=== PATIENT | female | born 1985 | race American Indian/Alaskan Native ===

== ENCOUNTER 2017-11-06 13:03 | Observation (INO) | payer MEDICAID ==
[2017-11-06 13:43] VITALS: BP 104/64
[2017-11-06] MEDS ORDERED: LACTATED RINGERS 500 ML IV ONE (13:46)
--- NOTE | 2017-11-06 15:30 | Ultrasound Report ---
FINAL REPORT EXAM: US OB BPP WO NON-STRESS HISTORY: decreased movement TECHNIQUE: Biophysical profile PRIORS: None currently available. FINDINGS: Single fetus is identified. Presentation: Cephalic. heart rate: 129 BPM Breathin Gross Body Movements: 2 Tone: 2 Qualitative AFV: 2 IMPRESSION: Biophysical profile score 6/8.
[2017-11-06 15:52] LABS: Bilirubin,Urine NEG (Negative); Blood,Urine NEG (Negative); Color,Urine Yellow (Yellow); Protein,Urine <15 mg/dL mg/dL (Negative); Urobilinogen,Urine < 2.0 mg/dL (<2.0); WBC,Urine < 1.0 /HPF (0.0-6.0)
[2017-11-06] MEDS ORDERED: CELESTONE SOLUSPAN IM SCH (16:00)
[2017-11-06] MEDS ORDERED: MAGNESIUM SULFATE 4GM/100ML 4 GM/100 ML BAG IV ONE (16:28)
[2017-11-06] MEDS ORDERED: MAGNESIUM SULFATE 40GM/1000ML 40 GM/1,000 ML BAG IV ONE (16:29)
--- NOTE | 2017-11-06 17:42 | History and Physical Report ---
History of Present Illness Date of examination: 11/06/17 Date of admission: 11/06/17 13:46 Chief complaint: decreased movement History of present illness: This is a [facility] patient 32 yo AUBREE 01/16/18 at 29 weeks here for decreased movement. she states that she has been having Mandeep Harrison for weeks. She has a hx of Preeclampsia in first with delivery at 33 weeks. Patient has hx of HSV2 +. No outbreaks noted. In this she has been seen by high risk [facility] and dx with polyhydramnios and EIF which has since been resiolved. She deines any vaginal bleeding nor leaking. Past History Past Medical History: no pertinent history ALGEBRAIST History: herpes Family/Genetic History: none Social history: single, smoking (Former). denies: alcohol abuse, prescription drug abuse - Obstetrical History Expected Date of Delivery: 01/16/18 Actual Gestation: 29 Week(s) 6 Day(s) : 2 Para: 1 Hx # Term Pregnancies: 0 Number of Pregnancies: 1 Spontaneous Abortions: 0 Induced : 0 Number of Living Children: 1 Medications and Allergies Allergies Allergy/AdvReac Type Severity Reaction Status Date / Time No Known Allergies Allergy Verified 11/06/17 13:55 Home Medications Medication Instructions Recorded Confirmed Last Taken Type Aspirin [Aspirin BABY CHEW TAB] 81 mg PO DAILY 11/06/17 11/06/17 1 Day Ago History ~11/05/17 Pnv No.95/Ferrous Fum/Folic AC 1 tab PO DAILY 11/06/17 11/06/17 1 Day Ago History [ Vitamins Tablet] ~11/05/17 Active Meds: Active Medications Betamethasone Acet/Betameth SodPhos (Celestone Soluspan) 12 mg IM Q24HR ANISA Last Admin: 11/06/17 16:26 Dose: 12 mg Review of Systems All systems: negative - Vital Signs Vital signs: Vital Signs Pulse BP 90 104/64 11/06/17 13:42 11/06/17 13:42 Temp Pulse Resp BP Pulse Ox 98.2 F 90 18 104/64 100 11/06/17 13:47 11/06/17 13:47 11/06/17 13:47 11/06/17 13:47 11/06/17 13:47 - Physical Exam Breasts: Positive: normal Cardiovascular: Regular rate, Normal S1 Lungs: Positive: Clear to auscultation, Normal air movement Abdomen: Positive: normal appearance, soft, normal bowel sounds. Negative: distention, tenderness, guarding Genitourinary (Female): Positive: normal external genitalia, normal perenium Vulva: both: normal Vagina: Positive: discharge Uterus: Positive: normal size, normal contour Anus/Rectum: Positive: normal perianal skin Extremities: Positive: normal Deep Tendon Reflex Grade: Normal +2 - Obstetrical FHR: category 1, category 2 Cervical Dilatation: 0.5 Cervical Effacement Percentage: 10 station: -4 Uterine Contraction Pattern: Regular Uterine Tone Measurement Phase: Contraction Uterine Contraction Intensity: Mild Results Abnormal lab results 11/06/17 Range/Units 13:30 Urine pH 8.0 H (5.0-7.0) All other labs normal. Ultrasound: report reviewed Assessment and Plan A/P IUP 29 weeks contractions ( stephanie 3-5min) Previous csec cat 1 and cat2 strip [facility] on diversion [place] acceptance of transfer IVF started with Oxyygen Magnesium 4g and 2g Betamethasone given today Close monitoring Transfer to [place] spoke with Dr. Agosto and agrees to accept transfer Labs sent BPP 08/19
[2017-11-06 18:38] LABS: Amphetamine Screen,Urine PRESUMPTIVE NEGATIVE; Benzodiazepines Screen,Urine PRESUMPTIVE NEGATIVE; Cannabinoid Screen,Urine PRESUMPTIVE NEGATIVE; Cocaine Screen,Urine PRESUMPTIVE NEGATIVE; Methadone Screen,Urine PRESUMPTIVE NEGATIVE; Opiate Screen,Urine PRESUMPTIVE NEGATIVE
== END 2017-11-06 18:45 | disposition other institution (70) ==
LOC: TRG 13:03 → LD 13:46
PROVIDERS: ADMIT Obstetrics & Gynecology; ATTEND Obstetrics & Gynecology
DX: O36.8130 Decreased fetal movements, third trimester, not applicable or unspecified (principal); O60.03 Preterm labor without delivery, third trimester; O34.219 Maternal care for unspecified type scar from previous cesarean delivery; Z3A.29 29 weeks gestation of pregnancy; Z87.891 Personal history of nicotine dependence; Z79.899 Other long term (current) drug therapy
CPT/HCPCS: 36415; 76819; 80307; 81001; 82731; 96372; G0378; J0702; J3475; J7120

== ENCOUNTER 2018-08-03 20:32 | Emergency (ER) | payer MEDICAID ==
--- NOTE | 2018-08-03 21:14 | Emergency Department Report ---
Blank Doc - Documentation Documentation: 32 y old female presents to ED s/p fall at [facility] yesterday, states broke f all with left knee ua,upt knee xray ACC eval
[2018-08-03 21:15] VITALS: BP 108/74
[2018-08-03] MEDS ORDERED: ULTRAM PO ONE (22:03)
--- NOTE | 2018-08-03 22:50 | XRay Report ---
PROCEDURE: XR KNEE 3V LT TECHNIQUE: Frontal, lateral, oblique views left knee HISTORY: knee pain COMPARISONS: None FINDINGS: There is no evidence of fracture, subluxation, lytic or blastic change or periosteal reaction. The joint spaces appear to be maintained. The soft tissues are unremarkable. IMPRESSION: 1. No plain film evidence of bony or soft tissue abnormality. If further imaging is required, MRI may be helpful. This document is electronically signed by Danielle Swain MD., Aug 03 2018 10:49:17 PM ET
--- NOTE | 2018-08-03 23:10 | Emergency Department Report ---
ED Lower Extremity HPI - General Chief Complaint: Fall Stated Complaint: FALL/L LEG/KNEE PAIN Time Seen by Provider: 08/03/18 21:07 Source: patient Mode of arrival: Ambulatory Limitations: No Limitations - History of Present Illness Initial Comments: 32-year-old female presents status post fall today she slipped and bilateral left knee there is no swelling or deformity. pt is ambulatory MD Complaint: knee injury Onset/Timin -: hour(s) Injury: Knee: Left Type of Injury: blunt Severity: moderate Severity scale (0 -10): 5 Improves With: nothing Worsens With: weight bearing, movement, palpation Context: fall Associated Symptoms: ambulatory - Related Data Home Medications Medication Instructions Recorded Confirmed Last Taken Aspirin [Aspirin BABY CHEW TAB] 81 mg PO DAILY 11/06/17 11/06/17 1 Day Ago ~11/05/17 Pnv No.95/Ferrous Fum/Folic AC 1 tab PO DAILY 11/06/17 11/06/17 1 Day Ago [ Vitamins Tablet] ~11/05/17 Previous Rx's Medication Instructions Recorded Last Taken Type Cyclobenzaprine [Flexeril] 10 mg PO TID PRN #30 tablet 08/03/18 Unknown Rx Naproxen [Naprosyn] 500 mg PO BID PRN #30 tablet 08/03/18 Unknown Rx Allergies Allergy/AdvReac Type Severity Reaction Status Date / Time No Known Allergies Allergy Verified 11/06/17 13:55 ED Review of Systems ROS: Stated complaint: FALL/L LEG/KNEE PAIN Other details as noted in HPI Constitutional: denies: chills, fever Eyes: denies: eye pain, eye discharge, vision change ENT: denies: ear pain, throat pain Respiratory: denies: cough, shortness of breath, wheezing Cardiovascular: denies: chest pain, palpitations Endocrine: no symptoms reported Gastrointestinal: denies: abdominal pain, nausea, diarrhea Genitourinary: denies: urgency, dysuria, discharge Musculoskeletal: other (knee pain ) Skin: denies: rash, lesions Neurological: denies: headache, weakness, paresthesias Psychiatric: denies: anxiety, depression Hematological/Lymphatic: as per HPI ED Past Medical Hx - Past Medical History Hx Hypertension: No Hx Diabetes: No Hx Deep Vein Thrombosis: No Hx Renal Disease: No Hx Sickle Cell Disease: No Hx Seizures: No Hx Asthma: No Hx HIV: No - Surgical History Past Surgical History?: Yes Additional Surgical History: c-sect x2 - Social History Smoking Status: Current Every Day Smoker Substance Use Type: Alcohol - Medications Home Medications: Home Medications Medication Instructions Recorded Confirmed Last Taken Type Aspirin [Aspirin BABY CHEW TAB] 81 mg PO DAILY 11/06/17 11/06/17 1 Day Ago History ~11/05/17 Pnv No.95/Ferrous Fum/Folic AC 1 tab PO DAILY 11/06/17 11/06/17 1 Day Ago History [ Vitamins Tablet] ~11/05/17 Cyclobenzaprine [Flexeril] 10 mg PO TID PRN #30 tablet 08/03/18 Unknown Rx Naproxen [Naprosyn] 500 mg PO BID PRN #30 tablet 08/03/18 Unknown Rx ED Physical Exam - General Limitations: No Limitations General appearance: alert, in no apparent distress - Head Head exam: Present: atraumatic, normocephalic - Eye Eye exam: Present: normal appearance, PERRL, EOMI Pupils: Present: normal accommodation - ENT ENT exam: Present: mucous membranes moist - Neck Neck exam: Present: normal inspection - Respiratory Respiratory exam: Present: normal lung sounds bilaterally. Absent: respiratory distress - Cardiovascular Cardiovascular Exam: Present: regular rate, normal rhythm, normal heart sounds. Absent: systolic murmur, diastolic murmur, rubs, gallop - GI/Abdominal GI/Abdominal exam: Present: soft, normal bowel sounds. Absent: bruit, hernia - Rectal Rectal exam: Present: deferred - Extremities Exam Extremities exam: Present: full ROM, tenderness (left anterior knee ), normal capillary refill. Absent: pedal edema, joint swelling, calf tenderness - Expanded Lower Extremity Exam Left Knee exam: Present: full ROM, tenderness, pain w/ pronation/supination, full knee extension. Absent: swelling, abrasion, laceration, ecchymosis, deformity, crepidus, dislocation, erythema, effusion, posterior draw sign, pain/laxity with valgus, pain/laxity with varus Lower Leg exam: Present: normal inspection, full ROM. Absent: tenderness Ankle exam: Present: normal inspection, full ROM. Absent: tenderness Foot/Toe exam: Present: normal inspection, full ROM. Absent: tenderness Neuro vascular tendon exam: Absent: pulse deficit, motor deficit, sensory deficit, tendon deficit Gait: Positive: observed and normal - Back Exam Back exam: Present: normal inspection, full ROM. Absent: tenderness, muscle spasm, rash noted - Neurological Exam Neurological exam: Present: alert, oriented X3, CN II-XII intact, normal gait, reflexes normal. Absent: motor sensory deficit - Psychiatric Psychiatric exam: Present: normal affect, normal mood - Skin Skin exam: Present: warm, dry, intact, normal color. Absent: rash ED Course Vital Signs 08/03/18 20:39 Temperature 98.2 F Pulse Rate 81 Respiratory 16 Rate Blood Pressure 108/74 O2 Sat by Pulse 99 Oximetry ED Lower Extremity MDM - Radiology Data Radiology results: report reviewed, image reviewed Ordering Physician: FRAN ROQUE Date of Service: 08/03/18 Procedure(s): XR knee 3V LT Accession Number(s): [id number] cc: FRAN ROQUE Fluoro Time In Minutes: PROCEDURE: XR KNEE 3V LT TECHNIQUE: Frontal, lateral, oblique views left knee HISTORY: knee pain COMPARISONS: None FINDINGS: There is no evidence of fracture, subluxation, lytic or blastic change or periosteal reaction. The joint spaces appear to be maintained. The soft tissues are unremarkable. IMPRESSION: 1. No plain film evidence of bony or soft tissue abnormality. If further imaging is required, MRI may be helpful. This document is electronically signed by Danielle Swain MD., Aug 03 2018 10:49:17 PM ET Transcribed By: ED Dictated By: DANIELLE SWAIN MD Electronically Authenticated By: DANIELLE SWAIN MD Signed Date/Time: 08/03/182249 DD/ 56 TD/TT: 08/03/182156 - Medical Decision Making This is a knee strain plan NSAIDs muscle relaxants Rice therapy following obesity. 2-3 days and return immediately should symptoms worsen patient verbalized agreement and understanding of discharge plan patient DC'd home in stable condition at this time Critical care attestation.: If time is entered above; I have spent that time in minutes in the direct care of this critically ill patient, excluding procedure time. ED Disposition Clinical Impression: Knee strain Qualifiers: Encounter type: initial encounter Laterality: left Qualified Code(s): S86.912A - Strain of unspecified muscle(s) and tendon(s) at lower leg level, left leg, initial encounter Disposition: DC-01 TO HOME OR SELFCARE Is pt being admited?: No Does the pt Need Aspirin: No Condition: Stable Instructions: Knee Pain (ED), Knee Sprain (ED), Knee Exercises (GEN) Prescriptions: Cyclobenzaprine [Flexeril] 10 mg PO TID PRN #30 tablet PRN Reason: Muscle Spasm Naproxen [Naprosyn] 500 mg PO BID PRN #30 tablet PRN Reason: pain Referrals: THEO SHI MD [Staff Physician] - 3-5 Days Forms: Work/School Release Form(ED)
== END 2018-08-03 23:15 | disposition home or self-care (01) ==
LOC: ED 20:32
DX: S86.912A Strain of unspecified muscle(s) and tendon(s) at lower leg level, left leg, initial encounter (principal); F17.200 Nicotine dependence, unspecified, uncomplicated; W01.0XXA Fall on same level from slipping, tripping and stumbling without subsequent striking against object, initial encounter; Y93.89 Activity, other specified; Y92.89 Other specified places as the place of occurrence of the external cause; Y99.8 Other external cause status

== ENCOUNTER 2019-04-30 12:39 | Outpatient (CLI) | payer MEDICAID ==
[2019-04-30 13:23] VITALS: BP 100/64
== END 2019-04-30 14:00 | disposition home or self-care (01) ==
LOC: TRG 12:39
PROVIDERS: ATTEND Obstetrics & Gynecology
DX: O26.893 Other specified pregnancy related conditions, third trimester (principal); R06.02 Shortness of breath; Z3A.38 38 weeks gestation of pregnancy
CPT/HCPCS: 59025

== ENCOUNTER 2019-04-30 14:01 | Emergency (ER) | payer MEDICAID ==
--- NOTE | 2019-04-30 14:18 | Event Note ---
ED Screening Note ED Screening Note: chest tightness, shortness of breath, This initial assessment/diagnostic orders/clinical plan/treatment(s) is/are subject to change based on patients health status, clinical progression and re- assessment by fellow clinical providers in the ED. Further treatment and workup at subsequent clinical providers discretion. Patient/guardian urged not to elope from the ED as their condition may be serious if not clinically assessed and managed. Initial orders include: cbc bmp bnp EKG
[2019-04-30 14:53] LABS: Basophils # (Auto) 0.1 K/mm3 (0.0-0.1); Basophils % (Auto) 1.2 % (0.0-1.8); Eosinophils # (Auto) 0.1 K/mm3 (0.0-0.4); Eosinophils % (Auto) 2.3 % (0.0-4.3); Hematocrit 35.5 % (30.3-42.9); Hemoglobin 11.6 gm/dl (10.1-14.3); Lymphocytes # (Auto) 1.4 K/mm3 (1.2-5.4); Lymphocytes % (Auto) 23.8 % (13.4-35.0); Mean Corpuscular HGB Conc 33 % (30-34); Mean Corpuscular Volume 85 fl (79-97); Monocytes # (Auto) 0.6 K/mm3 (0.0-0.8); Monocytes % (Auto) 9.9 % (0.0-7.3); Red Blood Count 4.15 M/mm3 (3.65-5.03)
[2019-04-30 15:10] LABS: Platelet Count 278 K/mm3 (140-440)
[2019-04-30 15:16] LABS: BUN/Creatinine Ratio 9; Blood Urea Nitrogen 6 mg/dL (7-17); Calcium 8.9 mg/dL (8.4-10.2)
[2019-04-30] MEDS ORDERED: SODIUM CHLORIDE 0.9% 1000 ML 1,000 ML IV ONE (15:45)
[2019-04-30] MEDS ORDERED: ACETAMINOPHEN 325 MG TAB PO ONE (15:45)
--- NOTE | 2019-04-30 16:08 | Emergency Department Report ---
ED General Adult HPI - General Chief complaint: Chest Pain Stated complaint: CP Time Seen by Provider: 04/30/19 15:28 Source: patient Mode of arrival: Wheelchair Limitations: No Limitations - History of Present Illness Initial comments: Patient is a 33-year-old female presents emergency room with complaints of chest pain that began 3 days ago. She describes it as a heaviness and a tightness. She states that she also has palpitations which feel like a fluttering and difficulty in breathing. Patient is currently 39 weeks . She denies any leg swelling, pleuritic chest pain, fever, cough, hemoptysis, recent illness, recent travel, recent surgery. She states that she got called her [facility] APPRAIS[facility] at [facility] and was advised to be evaluated in the emergency department. /P:1/A:1. 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 Severity scale (0 -10): 0 - Related Data Home Medications Medication Instructions Recorded Confirmed Last Taken Aspirin [Aspirin BABY CHEW TAB] 81 mg PO DAILY 11/06/17 11/06/17 1 Day Ago ~11/05/17 Pnv No.95/Ferrous Fum/Folic AC 1 tab PO DAILY 11/06/17 11/06/17 1 Day Ago [ Vitamins Tablet] ~11/05/17 Previous Rx's Medication Instructions Recorded Last Taken Type Cyclobenzaprine [Flexeril] 10 mg PO TID PRN #30 tablet 08/03/18 Unknown Rx Naproxen [Naprosyn] 500 mg PO BID PRN #30 tablet 08/03/18 Unknown Rx Allergies Allergy/AdvReac Type Severity Reaction Status Date / Time No Known Allergies Allergy Verified 11/06/17 13:55 ED Review of Systems ROS: Stated complaint: CP Other details as noted in HPI Comment: All other systems reviewed and negative ED Past Medical Hx - Past Medical History Previous Medical History?: No Hx Hypertension: No Hx Diabetes: No Hx Deep Vein Thrombosis: No Hx Renal Disease: No Hx Sickle Cell Disease: No Hx Seizures: No Hx Asthma: No Hx HIV: No - Surgical History Past Surgical History?: Yes Additional Surgical History: c-sect x2 - Social History Smoking Status: Never Smoker Substance Use Type: None - Medications Home Medications: Home Medications Medication Instructions Recorded Confirmed Last Taken Type Aspirin [Aspirin BABY CHEW TAB] 81 mg PO DAILY 11/06/17 11/06/17 1 Day Ago History ~11/05/17 Pnv No.95/Ferrous Fum/Folic AC 1 tab PO DAILY 11/06/17 11/06/17 1 Day Ago History [ Vitamins Tablet] ~11/05/17 Cyclobenzaprine [Flexeril] 10 mg PO TID PRN #30 tablet 08/03/18 Unknown Rx Naproxen [Naprosyn] 500 mg PO BID PRN #30 tablet 08/03/18 Unknown Rx ED Physical Exam - General Limitations: No Limitations General appearance: alert, in no apparent distress - Head Head exam: Present: atraumatic, normocephalic - Eye Eye exam: Present: normal appearance - ENT ENT exam: Present: mucous membranes moist - Respiratory Respiratory exam: Present: normal lung sounds bilaterally. Absent: respiratory distress, wheezes, rales, rhonchi, stridor, chest wall tenderness, accessory muscle use, decreased breath sounds, prolonged expiratory - Cardiovascular Cardiovascular Exam: Present: regular rate, normal rhythm, normal heart sounds. Absent: systolic murmur, diastolic murmur, rubs, gallop - GI/Abdominal GI/Abdominal exam: Present: soft. Absent: distended, tenderness, guarding, rebound, rigid - Extremities Exam Extremities exam: Absent: pedal edema - Neurological Exam Neurological exam: Present: alert, oriented X3 - Psychiatric Psychiatric exam: Present: normal affect, normal mood - Skin Skin exam: Present: warm, dry, intact ED Course Vital Signs 04/30/19 04/30/19 14:21 15:29 Temperature 97.7 F Pulse Rate 77 75 Respiratory 18 16 Rate Blood Pressure 109/77 Blood Pressure 113/65 [Left] O2 Sat by Pulse 100 98 Oximetry ED Medical Decision Making - Lab Data Result diagrams: 04/30/19 14:40 04/30/19 14:40 Lab Results 04/30/19 04/30/19 04/30/19 Range/Units 14:40 14:40 16:11 WBC 5.7 (4.5-11.0) K/mm3 RBC 4.15 (3.65-5.03) M/mm3 Hgb 11.6 (10.1-14.3) gm/dl Hct 35.5 (30.3-42.9) % MCV 85 (79-97) fl MCH 28 (28-32) pg MCHC 33 (30-34) % RDW 13.0 L (13.2-15.2) % Plt Count 278 (140-440) K/mm3 Lymph % (Auto) 23.8 (13.4-35.0) % [place] % (Auto) 9.9 H (0.0-7.3) % Eos % (Auto) 2.3 (0.0-4.3) % Baso % (Auto) 1.2 (0.0-1.8) % Lymph # 1.4 (1.2-5.4) K/mm3 [place] # 0.6 (0.0-0.8) K/mm3 Eos # 0.1 (0.0-0.4) K/mm3 Baso # 0.1 (0.0-0.1) K/mm3 Seg Neutrophils % 62.8 (40.0-70.0) % Seg Neutrophils # 3.6 (1.8-7.7) K/mm3 D-Dimer 636.30 H (0-234) ng/mlDDU Sodium 138 (137-145) mmol/L Potassium 4.2 (3.6-5.0) mmol/L Chloride 103.7 (98-107) mmol/L Carbon Dioxide 22 (22-30) mmol/L Anion Gap 17 mmol/L BUN 6 L (7-17) mg/dL Creatinine 0.7 (0.7-1.2) mg/dL Estimated GFR > 60 ml/min BUN/Creatinine Ratio 9 % Glucose 82 (65-100) mg/dL Calcium 8.9 (8.4-10.2) mg/dL Phosphorus (2.5-4.5) mg/dL Magnesium (1.7-2.3) mg/dL Total Creatine Kinase (30-135) units/L Troponin T (0.00-0.029) ng/mL NT-Pro-B Natriuret Pep 91.61 (0-450) pg/mL TSH (0.270-4.200) mlU/mL 04/30/19 04/30/19 04/30/19 Range/Units 16:11 16:21 16:21 WBC (4.5-11.0) K/mm3 RBC (3.65-5.03) M/mm3 Hgb (10.1-14.3) gm/dl Hct (30.3-42.9) % MCV (79-97) fl MCH (28-32) pg MCHC (30-34) % RDW (13.2-15.2) % Plt Count (140-440) K/mm3 Lymph % (Auto) (13.4-35.0) % [place] % (Auto) (0.0-7.3) % Eos % (Auto) (0.0-4.3) % Baso % (Auto) (0.0-1.8) % Lymph # (1.2-5.4) K/mm3 [place] # (0.0-0.8) K/mm3 Eos # (0.0-0.4) K/mm3 Baso # (0.0-0.1) K/mm3 Seg Neutrophils % (40.0-70.0) % Seg Neutrophils # (1.8-7.7) K/mm3 D-Dimer (0-234) ng/mlDDU Sodium (137-145) mmol/L Potassium (3.6-5.0) mmol/L Chloride (98-107) mmol/L Carbon Dioxide (22-30) mmol/L Anion Gap mmol/L BUN (7-17) mg/dL Creatinine (0.7-1.2) mg/dL Estimated GFR ml/min BUN/Creatinine Ratio % Glucose (65-100) mg/dL Calcium (8.4-10.2) mg/dL Phosphorus 3.90 (2.5-4.5) mg/dL Magnesium 1.90 (1.7-2.3) mg/dL Total Creatine Kinase 39 (30-135) units/L Troponin T < 0.010 (0.00-0.029) ng/mL NT-Pro-B Natriuret Pep (0-450) pg/mL TSH 1.620 (0.270-4.200) mlU/mL - EKG Data EKG shows normal: sinus rhythm, axis, intervals, QRS complexes, ST-T waves Rate: tachycardia - Medical Decision Making 6:00 PM signed out to FRAN Neville, pending CTA of the chest Critical care attestation.: If time is entered above; I have spent that time in minutes in the direct care of this critically ill patient, excluding procedure time. ED Disposition Condition: Stable
--- NOTE | 2019-04-30 20:10 | Cat Scan Report ---
CTA CHEST WITH CONTRAST INDICATION / CLINICAL INFORMATION: CP, SOB, currently 39 weeks . TECHNIQUE: Axial CT images were obtained through the chest after injection of 100 MLO Omnipaque 350 IV contrast. 3 plane MIP and/or 3D reconstructions were produced. All CT scans at this location are performed usi ng CT dose reduction for ALARA by means of automated exposure control. Patient requested a lead apron covering the abdomen. COMPARISON: None available. FINDINGS: PULMONARY ARTERIES: No pulmonary emboli. THORACIC AORTA: No significant abnormality. HEART: No significant abnormality. CORONARY ARTERIES: No significant calcification. MEDIASTINUM / DAYANARA: No significant abnormality. PLEURA: No pleural effusion. No pneumothorax. LUNGS: No acute air space or interstitial disease. ADDITIONAL FINDINGS: None. UPPER ABDOMEN: No acute findings. SKELETAL STRUCTURES: No significant osseous abnormality. IMPRESSION: 1. No CT evidence for pulmonary embolism. 2. No acute findings. Signer Name: Dickson Burk MD Signed: 04/30/2019 8:06 PM Workstation Name: [id number]
--- NOTE | 2019-04-30 20:55 | Emergency Department Report ---
Blank Doc - Documentation Documentation: Referring Physician:EMMA COYNEPatient Name:WAYNE LANDRYPatient ID:[id number] of :[id number]:FemaleAccession:[id number] Date:[id number] Status:Finalized Findings [facility] [address] [place] [address] Cat Scan Report Signed Patient: WAYNE LANDRY MR #: [id number] : 1985 Acct:[id number] Age/Sex: 33 / F ADM Date: 04/30/19 Loc: ED Attending Dr: Ordering Physician: FRAN LEYVA Date of Service: 04/30/19 Procedure(s): CT angio chest Accession Number(s): [id number] cc: FRAN LEYVA CTA CHEST WITH CONTRAST INDICATION / CLINICAL INFORMATION: CP, SOB, currently 39 weeks . TECHNIQUE: Axial CT images were obtained through the chest after injection of 100 MLO Omnipaque 350 IV contrast. 3 plane MIP and/or 3D reconstructions were produced. All CT scans at this location are performed using CT dose reduction for ALARA by means of automated exposure control. Patient requested a lead apron covering the abdomen. COMPARISON: None available. FINDINGS: PULMONARY ARTERIES: No pulmonary emboli. THORACIC AORTA: No significant abnormality. HEART: No significant abnormality. CORONARY ARTERIES: No significant calcification. MEDIASTINUM / DAYANARA: No significant abnormality. PLEURA: No pleural effusion. No pneumothorax. LUNGS: No acute air space or interstitial disease. ADDITIONAL FINDINGS: None. UPPER ABDOMEN: No acute findings. SKELETAL STRUCTURES: No significant osseous abnormality. IMPRESSION: 1. No CT evidence for pulmonary embolism. 2. No acute findings. Signer Name: Dickson Burk MD Signed: 04/30/2019 8:06 PM Workstation Name: [id number] Transcribed By: DT Dictated By: Armani Burk MD Electronically Authenticated By: Armani Burk MD Signed Date/Time: 04/30/192005
[2019-04-30 21:10] VITALS: BP 115/86
== END 2019-04-30 21:10 | disposition home or self-care (01) ==
LOC: ED 14:01
DX: R07.89 Other chest pain (principal); Z98.890 Other specified postprocedural states; Z79.899 Other long term (current) drug therapy
CPT/HCPCS: 36415; 71275; 80048; 82550; 83735; 83880; 84100; 84443; 84484; 85025; 85379; 93005; 93010; 99284; J7030; Q9967